=== PATIENT | male | born 1985 | race American Indian/Alaskan Native ===

== ENCOUNTER 2019-07-14 21:36 | Emergency (ER) | payer SELFPAY ==
--- NOTE | 2019-07-14 21:58 | Emergency Department Report ---
ED Shortness of Breath HPI - General Chief Complaint: Dyspnea/Respdistress Stated Complaint: RADHA Time Seen by Provider: 07/14/19 21:51 Source: patient, EMS Mode of arrival: Stretcher Limitations: No Limitations - History of Present Illness Initial Comments: Patient is a 33-year-old male that presents emergency room with complaints of shortness of breath. Patient started this morning at 4 AM. Patient states he ran out of his Symbicort today. Patient states he ran out of his albuterol as well. Patient states he has been having difficulties breathing all day and became acutely worse tonight. Patient states that symptoms became so bad he had to call EMS. Patient states in route EMS gave him Solu-Medrol, mag and albuterol. Patient states he improved. Patient states he is still short of breath but is feeling a little bit better. Patient denies chest pain. Patient denies body aches. Patient denies fever and chills. Patient also complains of cough. Patient dates cough is a dry cough. Patient denies recent travel. Patient denies recent international travel. Patient denies exposure to the novel coronavirus. Patient denies sick contacts. Patient denies fever and chills. Patient denies cough. Patient denies diarrhea. Patient denies coming in contact with anybody with symptoms of the novel coronavirus. MD Complaint: shortness of breath, cough, pain with inspiration, "asthma attack" -: Gradual, days(s) Severity: severe Consistency: other (Improving since meds from EMS) Improves With: oxygen, rest, bronchodilators, medication Worsens With: exertion, coughing, inspiration Known History Of: asthma Associated Symptoms: cough Treatments Prior to Arrival: oxygen, bronchodilator, other - Related Data Home Oxygen Therapy: No Previous Rx's Medication Instructions Recorded Last Taken Type Albuterol INH(or & Nicu Only) 2 puff IH QID PRN #8.5 gram 07/14/19 Unknown Rx [ProAir HFA Inhaler] Budesonide/Formoterol Fumarate 2 puff IH BID 30 Days #1 hfa.aer.ad 07/14/19 Unknown Rx [Symbicort 160-4.5 Mcg Inhaler] methylPREDNISolone [Medrol 4MG 4 mg PO DAILY 6 Days #1 tab.ds.pk 07/14/19 Unknown Rx DOSEPAK (21 tabs)] Allergies Allergy/AdvReac Type Severity Reaction Status Date / Time No Known Allergies Allergy Unverified 07/14/19 21:41 ED Review of Systems ROS: Stated complaint: RADHA Other details as noted in HPI Constitutional: denies: chills, fever Eyes: denies: eye pain, eye discharge, vision change ENT: denies: ear pain, throat pain Respiratory: cough, shortness of breath, SOB with exertion, SOB at rest, wheezing Cardiovascular: denies: chest pain, palpitations Endocrine: no symptoms reported Gastrointestinal: denies: abdominal pain, nausea, diarrhea Genitourinary: denies: urgency, dysuria Musculoskeletal: denies: back pain, joint swelling, arthralgia Skin: denies: rash, lesions Neurological: denies: headache, weakness, paresthesias Psychiatric: denies: anxiety, depression Hematological/Lymphatic: denies: easy bleeding, easy bruising ED Past Medical Hx - Past Medical History Previous Medical History?: Yes Hx Asthma: Yes - Surgical History Past Surgical History?: No - Family History Family history: no significant - Social History Smoking Status: Never Smoker Substance Use Type: Marijuana - Medications Home Medications: Home Medications Medication Instructions Recorded Confirmed Last Taken Type Albuterol INH(or & Nicu Only) 2 puff IH QID PRN #8.5 gram 07/14/19 Unknown Rx [ProAir HFA Inhaler] Budesonide/Formoterol Fumarate 2 puff IH BID 30 Days #1 hfa.aer.ad 07/14/19 Unknown Rx [Symbicort 160-4.5 Mcg Inhaler] methylPREDNISolone [Medrol 4MG 4 mg PO DAILY 6 Days #1 tab.ds.pk 07/14/19 Unknown Rx DOSEPAK (21 tabs)] ED Physical Exam - General Limitations: No Limitations General appearance: alert, in distress - Head Head exam: Present: atraumatic, normocephalic - Eye Eye exam: Present: normal appearance - ENT ENT exam: Present: mucous membranes moist - Neck Neck exam: Present: normal inspection - Respiratory Respiratory exam: Present: respiratory distress, wheezes, accessory muscle use - Cardiovascular Cardiovascular Exam: Present: regular rate, normal rhythm. Absent: systolic murmur, diastolic murmur, rubs, gallop - GI/Abdominal GI/Abdominal exam: Present: soft, normal bowel sounds - Rectal Rectal exam: Present: deferred - Extremities Exam Extremities exam: Present: normal inspection - Back Exam Back exam: Present: normal inspection - Neurological Exam Neurological exam: Present: alert, oriented X3 - Psychiatric Psychiatric exam: Present: normal affect, normal mood - Skin Skin exam: Present: warm, dry, intact, normal color. Absent: rash ED Course Vital Signs 07/14/19 07/14/19 07/14/19 21:50 22:00 22:16 Temperature Pulse Rate 86 83 74 Respiratory 15 13 18 Rate Blood Pressure 120/51 120/51 O2 Sat by Pulse 100 100 100 Oximetry 07/14/19 07/14/19 07/14/19 22:30 22:46 23:00 Temperature Pulse Rate 91 H 95 H 90 Respiratory 19 18 16 Rate Blood Pressure 120/51 120/51 120/51 O2 Sat by Pulse 100 95 98 Oximetry 07/14/19 07/14/19 07/14/19 23:06 23:16 23:22 Temperature Pulse Rate 81 108 H 78 Respiratory 16 13 21 Rate Blood Pressure 120/51 120/51 120/51 O2 Sat by Pulse 97 100 98 Oximetry 07/14/19 07/14/19 07/15/19 23:30 23:46 00:00 Temperature Pulse Rate 82 71 70 Respiratory 18 16 13 Rate Blood Pressure 120/51 120/51 120/51 O2 Sat by Pulse 99 100 98 Oximetry 07/15/19 07/15/19 07/15/19 00:16 00:30 00:46 Temperature Pulse Rate 66 65 67 Respiratory 12 13 15 Rate Blood Pressure 120/51 126/51 126/51 O2 Sat by Pulse 98 98 98 Oximetry 07/15/19 07/15/19 07/15/19 01:00 01:16 01:30 Temperature Pulse Rate 60 58 L 55 L Respiratory 12 13 12 Rate Blood Pressure 126/51 126/51 106/52 O2 Sat by Pulse 97 97 97 Oximetry 07/15/19 07/15/19 07/15/19 01:46 02:00 02:15 Temperature 97.5 F L Pulse Rate 56 L 59 L 55 L Respiratory 12 12 12 Rate Blood Pressure 106/52 106/52 O2 Sat by Pulse 100 100 99 Oximetry 07/15/19 07/15/19 07/15/19 02:30 02:46 03:00 Temperature Pulse Rate 61 68 61 Respiratory 13 15 11 L Rate Blood Pressure 106/52 106/52 123/69 O2 Sat by Pulse 100 100 100 Oximetry 07/15/19 03:05 Temperature 97.5 F L Pulse Rate Respiratory Rate Blood Pressure O2 Sat by Pulse Oximetry - Reevaluation(s) Reevaluation #1: Patient states his symptoms have resolved. Patient states he is feeling much better. Patient denies shortness of breath. Patient's oxygen stable the entire time in ER. Patient's vital signs being monitored and are stable. 07/14/19 22:58 Reevaluation #2: Patient monitored for extended amount of time in ER. Patient still asymptomatic. Patient states he is ready to go. Patient's lactic acid is elevated. Patient will have a repeat lactic acid. 07/14/19 23:35 Reevaluation #3: Lactic acid still elevated. Patient will be given fluids. Patient states that he feels great. Patient denies shortness of breath. 07/15/19 00:24 Reevaluation #4: Patient's lactic acid is improved. Patient clinically improved. Patient denies shortness of breath or symptoms. Patient stable for discharge. I discussed all results and clinical findings with patient. I discussed plan of care with patient. Patient agrees with plan of care. Patient is stable for discharge. Patient will be discharged home. Patient given discharge instructions. Patient voiced understanding of discharge instructions. 07/15/19 04:29 ED Medical Decision Making - Lab Data Result diagrams: 07/14/19 22:24 07/14/19 22:24 - Radiology Data Radiology results: report reviewed, image reviewed CHEST 1 VIEW 07/14/2019 9:10 PM INDICATION / CLINICAL INFORMATION: Dyspnea. COMPARISON: None available. FINDINGS: SUPPORT DEVICES: None. HEART / MEDIASTINUM: No significant abnormality. LUNGS / PLEURA: No significant pulmonary or pleural abnormality. No pneumothorax. ADDITIONAL FINDINGS: No significant additional findings. IMPRESSION: 1. No acute findings. - Medical Decision Making Patient is a 33-year-old male that presents emergency room with complaints of asthma exacerbation and shortness of breath. Patient was brought in by EMS and the patient was given Solu-Medrol, magnesium run and albuterol and the patient responded well to treatment. Patient was given a DuoNeb in the ER and his symptoms completely resolved. Patient was asymptomatic upon the discharge. Patient stable for discharge. Patient discharged home. Patient given a refill of his Symbicort and albuterol. Patient encouraged to follow-up regularly with his public relations player and his primary care. Patient's chest x-ray is negative for acute findings. Patient's labs are negative for acute findings. - Differential Diagnosis Status asthmaticus, asthma exacerbation, noncompliance with inhalers. Critical Care Time: Yes Critical care time in (mins) excluding proc time.: 35 Critical care attestation.: If time is entered above; I have spent that time in minutes in the direct care of this critically ill patient, excluding procedure time. Critical Care Time: 35 minutes ED Disposition Clinical Impression: Noncompliance, Lactic acid acidosis Status asthmaticus Qualifiers: Asthma severity: unspecified severity Asthma persistence: unspecified Qualified Code(s): J45.902 - Unspecified asthma with status asthmaticus Asthma exacerbation Qualifiers: Asthma severity: unspecified severity Asthma persistence: unspecified Qualified Code(s): J45.901 - Unspecified asthma with (acute) exacerbation Disposition: TO HOME OR SELFCARE Is pt being admited?: No Does the pt Need Aspirin: No Condition: Stable Instructions: Asthma (ED) Additional Instructions: Patient to follow-up with primary care in 2 to 3 days. Patient to follow-up with public relations player in 2 to 3 days. Patient to rest. Patient to increase water. Patient to avoid strenuous exercise or heavy lifting until cleared by pu lmonologist. Patient to take Tylenol or ibuprofen as needed for pain. Patient to take meds as directed. Patient to return to the ER if condition worsens, changes or new symptoms arise. Prescriptions: methylPREDNISolone [Medrol 4MG DOSEPAK (21 tabs)] 4 mg PO DAILY 6 Days #1 tab.ds.pk Albuterol INH(or & Nicu Only) [ProAir HFA Inhaler] 2 puff IH QID PRN #8.5 gram PRN Reason: Shortness Of Breath Budesonide/Formoterol Fumarate [Symbicort 160-4.5 Mcg Inhaler] 2 puff IH BID 30 Days #1 hfa.aer.ad Referrals: PRIMARY CARE, [Primary Care Provider] - 2-3 Days SAMEERA HUGGINS MD [Staff Physician] - 2-3 Days Time of Disposition: 04:30
[2019-07-14] MEDS ORDERED: IPRATROPIUM/ALBUTEROL SULFATE 3 ML AMPUL.NEB IH ONE (22:00)
--- NOTE | 2019-07-14 22:45 | XRay Report ---
CHEST 1 VIEW 07/14/2019 9:10 PM INDICATION / CLINICAL INFORMATION: Dyspnea. COMPARISON: None available. FINDINGS: SUPPORT DEVICES: None. HEART / MEDIASTINUM: No significant abnormality. LUNGS / PLEURA: No significant pulmonary or pleural abnormality. No pneumothorax. ADDITIONAL FINDINGS: No significant additional findings. IMPRESSION: 1. No acute findings. Signer Name: Renata Sin MD Signed: 07/14/2019 10:40 PM Workstation Name: [id number]
[2019-07-14 22:48] LABS: Basophils % (Auto) 0.6 % (0.0-1.8); Eosinophils # (Auto) 0.5 K/mm3 (0.0-0.4); Eosinophils % (Auto) 8.9 % (0.0-4.3); Hematocrit 43.7 % (35.5-45.6); Hemoglobin 14.5 gm/dl (11.8-15.2); Lymphocytes # (Auto) 1.8 K/mm3 (1.2-5.4); Lymphocytes % (Auto) 30.7 % (13.4-35.0); Mean Corpuscular HGB Conc 33 % (32-34); Mean Corpuscular Volume 89 fl (84-94); Monocytes # (Auto) 0.4 K/mm3 (0.0-0.8); Monocytes % (Auto) 6.3 % (0.0-7.3); Platelet Count 164 K/mm3 (140-440); Red Blood Count 4.89 M/mm3 (3.65-5.03); Red Cell Distribution Width 12.7 % (13.2-15.2)
[2019-07-14 23:08] LABS: Alanine Aminotransferase 19 units/L (7-56); BUN/Creatinine Ratio 11; Blood Urea Nitrogen 12 mg/dL (9-20); Calcium 8.9 mg/dL (8.4-10.2); Hemolysis Index 6
[2019-07-15] MEDS ORDERED: SODIUM CHLORIDE 0.9% 1000 ML 1,000 ML IV ONE ×2 (01:30→02:14)
[2019-07-15 04:37] VITALS: BP 113/57
== END 2019-07-15 04:44 | disposition home or self-care (01) ==
LOC: ED 21:36
DX: J45.902 Unspecified asthma with status asthmaticus (principal)
CPT/HCPCS: 36415; 71045; 80053; 82140; 85025; 99284; J7030